=== PATIENT | female | born 1965 | race Hispanic/Latino ===

== ENCOUNTER 2022-06-01 15:18 | Emergency (ER) | payer SELFPAY ==
[~2022-06-01] VITALS: Ht 160 cm; Wt 63.5 kg
[2022-06-01] MEDS ORDERED: CLONIDINE HCL 0.2 MG TAB PO ONE (16:00)
[2022-06-01] MEDS ORDERED: ASPIRIN 81 MG CHEW TAB PO ONE (16:00)
[2022-06-01 16:07] LABS: BASOPHILS # (AUTO) 0.1 (0.0-0.1); BASOPHILS % 1.1 % (0.0-1.0); EOSINOPHILS # (AUTO) 0.2 (0.0-0.4); EOSINOPHILS % 3.5 % (0.0-6.0); HEMATOCRIT 44.4 % (34.2-44.1); HEMOGLOBIN 14.4 g/dL (12.0-16.0); LYMPHOCYTES % 31.7 % (18.0-39.1); MEAN CORPUSCULAR HEMOGLOBIN 31.2 pg (28-32); MEAN CORPUSCULAR HGB CONC 32.4 g/dL (31-35); MEAN CORPUSCULAR VOLUME 96.1 fL (81-99); MONOCYTES # (AUTO) 0.4 (0.2-0.8); MONOCYTES % 6.7 % (4.4-11.3); NEUTROPHILS # (AUTO) 3.6 (2.1-6.9); NEUTROPHILS % 56.8 % (38.7-80.0); PLATELET COUNT 283 x10e3/uL (140-360); RED BLOOD COUNT 4.62 x10e6/uL (3.6-5.1); RED CELL DISTRIBUTION WIDTH 12.3 % (11.7-14.4)
[2022-06-01 16:27] LABS: ALBUMIN 3.9 g/dL (3.5-5.0); ANION GAP 16.9 mmol/L (8-16); CALCIUM 9.6 mg/dL (8.4-10.2); CREATININE, SERUM 0.82 mg/dL (0.57-1.11); POTASSIUM 3.9 mmol/L (3.5-5.1)
[2022-06-01 16:33] LABS: CREATINE KINASE MB 0.4 ng/mL (0-5.0)
[2022-06-01] MEDS ORDERED: ANAPROX DS550 MG PO (16:57)
[2022-06-01 17:05] VITALS: BP 146/92
== END 2022-06-01 17:08 | disposition home or self-care (01) ==
LOC: ER 15:34
DX: R07.89 Other chest pain (principal); M54.12 Radiculopathy, cervical region; R03.0 Elevated blood-pressure reading, without diagnosis of hypertension; I10 Essential (primary) hypertension
CPT/HCPCS: 36415; 71045; 72050; 80053; 82550; 82553; 84484; 85025; 85379; 93005; 99283

== ENCOUNTER 2022-07-23 04:39 | Emergency (ER) | payer SELFPAY ==
[~2022-07-23] VITALS: Ht 160 cm; Wt 63.5 kg
[~2022-07-23 04:39] MED LIST: ANAPROX DS550 MG PO
[2022-07-23 05:56] VITALS: BP 147/90
[2022-07-23] MEDS ORDERED: BENZONATATE100 MG PO (06:00)
== END 2022-07-23 06:04 | disposition home or self-care (01) ==
LOC: ER 04:43
DX: R50.9 Fever, unspecified (principal); J06.9 Acute upper respiratory infection, unspecified; R05.9 Cough, unspecified; Z20.822 Contact with and (suspected) exposure to COVID-19
CPT/HCPCS: 71046; 99283; U0002